=== PATIENT | male | born 1970 | race African-American/Black ===

== ENCOUNTER 2022-11-03 08:18 | Day surgery (SDC) | payer OTHER ==
[2022-10-25 13:00] VITALS: BMI 52.2
[~2022-11-03 08:18] MED LIST: BUPIVACAINE HCL/PF 0.25% (2.5MG/ML) 10 ML VIAL IJ ONE
[2022-11-03] MEDS ORDERED: BUPIVACAINE HCL/PF 2.5 MG/ML - 30 ML VIAL IJ ONE (10:15)
[2022-11-03] MEDS ORDERED: PROPOFOL 20 ML ONE ×2 (10:22→10:25)
[2022-11-03] MEDS ORDERED: SUCCINYLCHOLINE CHLORIDE 200 MG/10 ML SYRINGE ONE (10:25)
[2022-11-03] MEDS ORDERED: MIDAZOLAM HCL 2 MG/2 ML SINGLE DOSE VIAL ONE (10:50)
[2022-11-03] MEDS ORDERED: BUPIVACAINE HCL/PF 0.25% (2.5MG/ML) 10 ML VIAL IJ ONE (11:23)
[2022-11-03] MEDS ORDERED: oxyCODONE HCL 5 MG TABLET ONE (12:33)
[2022-11-03] MEDS ORDERED: oxyCODONE HCL 5 MG TABLET PO ONE (12:37)
[2022-11-03 12:54] VITALS: PULSE 84; RESP 18; TEMP 97.9
[2022-11-03 13:23] VITALS: BP 140/80
== END 2022-11-03 13:23 | disposition home or self-care (01) ==
LOC: FASU 08:18
PROVIDERS: ATTEND Orthopaedic Surgery
PROC: 0SBD4ZZ Excision of Left Knee Joint, Percutaneous Endoscopic Approach (ICD-10-PCS; 2022-11-03)
PROC: 0SBD4ZZ Excision of Left Knee Joint, Percutaneous Endoscopic Approach (ICD-10-PCS; principal; 2022-11-03 11:09)
DX: S83.242A Other tear of medial meniscus, current injury, left knee, initial encounter (principal); S83.282A Other tear of lateral meniscus, current injury, left knee, initial encounter; S83.8X2A Sprain of other specified parts of left knee, initial encounter; M65.862 Other synovitis and tenosynovitis, left lower leg; X58.XXXA Exposure to other specified factors, initial encounter; Y93.9 Activity, unspecified; Y92.9 Unspecified place or not applicable
CPT/HCPCS: 94760